=== PATIENT | male | born 1970 | race Caucasian/White ===

== ENCOUNTER → 2016-05-31 | Outpatient (CLI) | payer OTHER ==
--- NOTE | 2016-05-31 14:06 | EKG ---
[address] [address] Measurements Intervals [place] Rate: 94 P: 69 DE: 151 QRS: 13 QRSD: 98 T: 49 QT: 364 QTc: 415 Interpretive Statements SINUS RHYTHM Compared to ECG 12/02/2015 15:04:21 No significant changes Electronically Signed On 05-31-16 15:42:06 MST by Zion Case [email or web address]
[2016-05-31 14:28] LABS: BASOPHILS # (AUTO) 0.03 10*3/UL; BASOPHILS % (AUTO) 0.3 % (0-1); EOSINOPHILS % (AUTO) 1.3 % (0-8); HEMATOCRIT 45.7 % (42.0-52.0); HEMOGLOBIN 16.3 g/dL (14.0-18.0); IMM GRAN % (AUTO) 0.5 % (0-5); IMM GRAN# (AUTO) 0.05 10*3/UL; LYMPHOCYTES # (AUTO) 3.27 10*3/uL; LYMPHOCYTES % (AUTO) 34.5 % (10-50); MEAN CORPUSCULAR HEMOGLOBIN 32.9 PG (27-31); MEAN CORPUSCULAR HGB CONC 35.7 g/dL (33-37); MONOCYTES # (AUTO) 0.91 10*3/UL (0.3-0.8); MONOCYTES % (AUTO) 9.6 % (5-15); NEUTROPHILS # (AUTO) 5.11 10*3/UL; NEUTROPHILS % (AUTO) 53.8 % (50-80); RDW COEFFICIENT OF VARIATION 13.2 % (11.5-14.5); RED BLOOD COUNT 4.96 10^6/uL (4.70-6.10); WHITE BLOOD COUNT 9.49 10^3/uL (4.8-10.8)
[2016-05-31 14:33] LABS: PLATELET MORPHOLOGY COMMENT NORMAL MORPHOLOGY (NORM)
[2016-05-31 14:50] LABS: BLOOD UREA NITROGEN 22 mg/dL (7-22); CALCIUM 8.6 mg/dL (8.7-10.7); CHLORIDE 99 meq/L (98-112); CREATININE 0.8 mg/dL (0.70-1.50); EST GLOMERULAR FILTRATION > 60 (>60 ml/min/1.73m(2)); GLUCOSE 105 mg/dL (78-110); POTASSIUM 3.4 meq/L (3.8-5.2); SODIUM 136 meq/L (135-145)
[2016-05-31 14:51] LABS: ASPARTATE AMINO TRANSFERASE 26 IU/L (21-57); BILIRUBIN,TOTAL 0.6 mg/dL (0.3-1.2); TOTAL PROTEIN 6.8 g/dL (6.1-8.0)
--- NOTE | 2016-05-31 21:09 | DI ---
XR CXR 2VW PA/LAT,05/31/2016 1:51 PM: Clinical History: Chest pain Previous Exam: None at this facility. Findings: PA and lateral views of the chest are obtained, and demonstrate clear lungs. The cardiomediastinum an d bony thorax are unremarkable. Impression: Normal chest.
== END ==
LOC: MOB LAB 13:54
PROVIDERS: ATTEND Family Medicine
DX: R07.9 Chest pain, unspecified (principal); I10 Essential (primary) hypertension; F17.200 Nicotine dependence, unspecified, uncomplicated
CPT/HCPCS: 36415; 71020; 80053; 84484; 85025; 93005; 93010

== ENCOUNTER 2016-06-08 11:08 | Emergency (ER) | payer OTHER ==
[2016-06-08 11:26] VITALS: RESP 16; TEMP 97.8
--- NOTE | 2016-06-08 13:51 | DI ---
History: Trauma. Procedure: Three-view. Prior study 04/12/16. Findings: As noted on the prior study, there is bilateral symmetric buttressing of the femoral head c onsistent with femoral acetabular impingement. Limited acetabular coverage is noted bilaterally right more so than left. Pelvic ring is intact. Some osteophyte formation is noted upper aspect of the lef t SI joint. Impression: No evidence of acute process. Mild degenerative changes bilaterally along with marginal b uttressing consistent with femoral acetabular impingement condition. No progression from prior study. Osteophyte upper aspect of the left SI joint.
--- NOTE | 2016-06-08 13:58 | DI ---
History: Right shoulder pain, trauma. Prior study: 04/30/16. Findings: The patient does have an in inferiorly directed bone spur but is well medial of the acromio clavicular junction. It is probably too medial to interfere with the supraspinatus muscle. Regarding the acromioclavicular junction, in the evidence of the to prior trauma. Its articular axis is rotated about 45? from normal and there is a small heterotopic bone at the top of the a.c. junctio n. The gap between the acromion and the humeral head is small, only 6 mm. This may contribute to pins running condition or since the humeral head is slightly higher than normal, the patient may have a p re-existing rotator cuff tear of the allows the humerus to be higher than normal. No dislocation identified. No fracture identified. Impression: Somewhat high riding humerus which could indicate pre-existing rotator cuff tear Moderate degenerative changes of the acromioclavicular junction Inferiorly directed osteophyte medial to the coracoid process, probably incidental but but could inte rfere with shoulder motion
--- NOTE | 2016-06-08 15:55 | PDOC ---
Fall HPI - General Chief Complaint: Fall Stated Complaint: fell at work, pain left gluteus and right shoulder Date Seen by Provider: 06/08/16 Time Seen by Provider: 11:30 Source: POSITIVE: Patient Exam Limitations: POSITIVE: No limitations Nurse's Notes Reviewed & Considered: Yes - History of Present Illness Initial Comments: The patient is a 45-year-old male. 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 He states that he slipped and fell a couple of feet landing on his left posterior hip. He states he also landed on his outstretched right hand and has subsequently had some pain to the lateral aspect of the right shoulder. He is ambulatory to the emergency room. He states he has a"big lump"in his left buttock and he has pain when sitting on his left buttock. He has a history of having had a fracture to his right clavicle in the past which is healed with some deformity. He states he has a pre-existing history of a rotator cuff injury to the right shoulder and has been scheduled with his orthopedist for rotator cuff surgery. Have you received a tetanus shot in the past 10 years?: Yes Body Location Affected: REPORTS: Upper Extremity (R) (Right shoulder), Lower Extremity (L) (Left posterior hip) Timing: REPORTS: Abrupt Duration: 1-3 hours Severity: Moderate Context of Fall: REPORTS: Slipped Location of Fall: REPORTS: Work Fell From Height (in feet): 2 Quality: REPORTS: "Pain" Associated Symptoms: REPORTS: Recalls Injury, Recalls Coming to ER. DENIES: Dazed, Seizure, Trouble Breathing, Memory Impairment, Blow to Head, Lost Consciousness, Other Location of Injuries / Pain: REPORTS: Right, Left, Shoulder, Hip (See above and see diagram) Any Prior Injuries Related to Current Complaint?: Yes (pre-existing right rotator cuff injury and clavicular fracture) - Patient Home Medications Home Medications: Home Medications Meloxicam 1 tab PO BID #60 tab 02/03/16 Lisinopril/Hydrochlorothiazide [Lisinopril-Hctz 20-25 Mg Tab] 1 tab PO DAILY # 90 tab 02/06/16 Cholecalciferol (Vitamin D3) [Vitamin D3] 1 cap PO QD cap 04/12/16 Varenicline Tartrate [Chantix] 1 tab PO BID #60 tab 04/12/16 Gabapentin 2 cap PO TID #180 cap 05/01/16 Hydrocodone/Acetaminophen [Hydrocodon-Acetaminophen 5-325] 1 tab PO QHS #60 tab 05/24/16 Cyclobenzaprine HCl 10 mg PO TID #90 tab 05/31/16 Carisoprodol [Soma] 350 mg PO QHS #30 tab 06/05/16 - Patient Allergies Allergies/Adverse Reactions: Allergies Allergy/AdvReac Type Severity Reaction Status Date / Time amoxicillin trihydrate AdvReac Intermediate ITCHING Verified 06/08/16 11:14 [From Augmentin] potassium clavulanate AdvReac Intermediate ITCHING Verified 06/08/16 11:14 [From Augmentin] Past Medical History - heen HEENT History: Denies History Cardiovascular History: Hypertension Respiratory History: Denies History Additional Respiratory History: HX OF HOME NOC O2 USE Gastrointestinal History: Denies History Genitourinary History: Denies History Endocrine History: Denies History Additional Endocrine History: CONFIRMED WITH PT Musculoskeletal History: Denies History Prosthesis or Implant: No Additional Musculoskeletal History: TAKES FLEXERIL FOR GENERAL BODY PAINS Neurological History: Denies History Additional Neurological History: PERIPHERAL NEUROPATHY Blood Disorders: Denies History Psychiatric History: Denies History History of Sexually Transmitted Diseases: No Cancer History: Denies History In Past Year Been Physically Harmed or Verbally Threatened: No History of MDRO: No History of Other Communicable Diseases: No Tobacco Use: Former Smoker Alcohol Use: None Substance Use Type: None Previous Surgical History: Yes Type / Date of Surgery: SEE ABOVE Anesthesia Reactions: No Significant Family History: No pertinent family hx Past Medical History Reviewed: Reviewed - No Changes ROS - Limitations ROS Limitations: No Limitations Constitution: REPORTS: Denies Symptoms Cardiovascular: REPORTS: Denies Cardiac Symptoms Respiratory: REPORTS: Denies Resp Symptoms Neurological: REPORTS: Denies Neuro Symptoms Gastrointestinal: REPORTS: Denies GI Symptoms Endocrine: REPORTS: Denies Symptoms Musculoskeletal: REPORTS: Joint Pain (Right shoulder and posterior left hip), Muscle Aches, Recent Injury (See above) Genitourinary: REPORTS: Denies Symptoms Eyes: REPORTS: Denies Symptoms ENT: REPORTS: Denies Symptoms Skin: REPORTS: Denies Skin Symptoms Lympathic: REPORTS: Denies Lympathic Symptoms Immunologic: POSITIVE: Denies Symptoms Psychiatric: POSITIVE: Denies Psych Symptoms Fall Physical Exam - General Appearance General Appearance: POSITIVE: Alert, Cooperative, No Acute Distress. NEGATIVE: No Evidence of Trauma - HEENT HEENT: POSITIVE: Head Inspection Nml, Eyes Inspection Nml, Ears Inspection Nml, Nose Inspection Nml, Oral/Dental Inspect. Nml, Pharynx Inspect. Nml, PERRL, EOMI - Pupil Size Pupil Size: 4 mm: Bilateral (PERRLA) - Neck Neck: POSITIVE: Non Tender, Painless ROM, Trachea Midline, Nexus Criteria Negative - Respiratory / CVS Respiratory / CVS: POSITIVE: Chest Non Tender, No Ecchymosis, Breath Sounds Normal, No Respiratory Distress, Heart Sounds Normal, Regular Rate/Rhythm Peripheral Pulses: Radial (R): 2+, Radial (L): 2+ - Abdomen Abdomen: Soft: (All Quadrants), Normal Bowel Sounds: (All Quadrants), Denies Tenderness: (All Quadrants), No Splenomegaly: (All Quadrants), No Hepatomegaly: (All Quadrants), No Guarding: (All Quadrants), No Rebound: (All Quadrants), No Palpable Pulse: (All Quadrants), No Palpabale Mass: (All Quadrants), No Distention: (All Quadrants), No Rigidity: (All Quadrants) - Neuro / Psych Neuro / Psych: POSITIVE: Oriented X3, behavioral health specialist Normal As Tested, Motor Normal, Sensation Normal, Mood Appropriate, Affect Appropriate - Skin Skin: POSITIVE: See Diagram, Other (Large deep hematoma left buttock with some ecchymosis) - Back Back: POSITIVE: Normal Inspection, No CVA Tenderness, Non Tender, Painless ROM, No Vertebral Tenderness - Extremities Extremity Assessment: Non-Tender: (ALL), Normal ROM: (ALL), No Edema: (ALL), Normal Inspection: (ALL), No Swelling: (ALL) Joint Exam: POSITIVE: Normal Gait, Limited ROM (Range of motion right shoulder limited in abduction), Antalgic Gait (Due to left gluteal pain). NEGATIVE: Ligamentous Instability, Effusion, Click, Crepitus, Unable to Bear Weight, Joint Effusion Images - Complete Complete: 1 - Discomfort on direct palpation over area of spinatus insertion with abduction right shoulder limited due to pain 2 - Pre-existing deformity distal right clavicle 3 - Large hematoma Fall Progress - Results Reviewed by me Xrays/CTs/US Reviewed by me: Yes Discussed with Radiologist: No Radiology Findings: X-ray left hip normal; x-ray right shoulder normal except for healed old distal clavicular fracture - Patient's Progress Pain Medication Addressed: POSITIVE: Yes (Tylenol or Advil as necessary) School/Work Release Addressed: POSITIVE: Yes Re-Examine Time:: 12:50 Status: POSITIVE: Unchanged - Consult Counseled: POSITIVE: Patient, RE: Radiology Results, RE: DX, RE: Need for F/U Patient Care Time - Estimated PCT Patient Care Time (In Minutes): 35 Vital Signs - Recent Vital Signs Vital Signs: Vital Signs (Last 8 hours) Temp Pulse Resp BP Pulse Ox 06/08/16 11:16 97.8 F 120 H 16 146/127 97 - VS Reviewed Vital Signs Reviewed: Yes Discharge Clinical Impression: Contusion, Shoulder sprain Discharge Disposition: Discharged to Home Condition: Fair Patient Instructions Given at Discharge: Contusion in Adults (ED), Shoulder Sprain (ED) Additional Instructions: You have a very large, deep, contusion and hematoma to the left buttock. This will cause you some pain, especially with sitting, for some time. This may take several weeks to resolve. Please apply warm moist compresses to your left buttock. Advil or Tylenol for pain. I believe you have also exacerbated your previous rotator cuff injury. Sling or shoulder immobilizer as necessary for this. Follow-up with your orthopedist, as is already arranged. Return here anytime if condition worsens in any way. Follow Up With: ALEIDA KAUFMAN [Primary Care Provider] - (Instructions as above. Follow-up with your primary care provider and orthopedist. Return here anytime if condition worsens in any way.)
== END 2016-06-08 13:05 | disposition home or self-care (01) ==
LOC: ER 11:08
DX: S70.02XA Contusion of left hip, initial encounter (principal); S43.401A Unspecified sprain of right shoulder joint, initial encounter; W17.89XA Other fall from one level to another, initial encounter; Y92.513 Shop (commercial) as the place of occurrence of the external cause; Y99.0 Civilian activity done for income or pay
CPT/HCPCS: 73030; 73502; 99282

== ENCOUNTER → 2016-06-14 | Outpatient (CLI) | payer OTHER ==
--- NOTE | 2016-06-14 23:08 | DI ---
MRI CERVICAL SPINE SCAN, 06/14/2016 1:41 PM: Clinical History: Cervical spondylosis with radiculopathy. Previous Exam: None. Sequences: Sagittal T1and T2 weighted. Axial T2 PLUS and FE 3D DUAL. Coronal T1 scans through the upp er cervical spine in the myelogram sequence could not be performed because the patient complained of extreme pain and desired to terminate the exam. The vertebral bodies are of normal height and size. There is disc space narrowing from C3-4 through C 6-7 and all cervical disc spaces show desiccation change. The cervical cord and cerebellar tonsils ar e normal. C2-3 has a mild circumferentially bulging but not herniated disc without canal or neural fo raminal stenosis. The C3-4 disc space is normal. C4-5 has a left lateral focal disc herniation that i s displacing the left side of the cord posteriorly and is causing left neural foraminal stenosis. The re is no canal or significant right neural foraminal stenosis. C5-6 has a bulging but not herniated d isc without canal stenosis. There is bilateral neural foraminal stenosis. C6-7 also has a circumferen tially bulging but not herniated disc without canal stenosis but with bilateral neural foraminal sten osis. The disc spaces from C7-T1 through T4-5 are normal. Readin. There is a focal left lateral disc herniation at C4-5 that is producing severe left neural forami nal stenosis. There is no canal or right neural foraminal stenosis. 2. There are bulging but not herniated discs without canal or neural foraminal stenosis at C2-3, C5- 6, and C6-7. The AP diameters of the canal at C5-6 and C6-7 are at the lowest limits of normal. 3. The C3-4 disc space and the disc spaces from C7-T1 through T4-5 are normal.
== END ==
LOC: MRI 13:35
PROVIDERS: ATTEND Neurological Surgery
DX: M47.22 Other spondylosis with radiculopathy, cervical region (principal); M50.121 Cervical disc disorder at C4-C5 level with radiculopathy; M47.812 Spondylosis without myelopathy or radiculopathy, cervical region
CPT/HCPCS: 72141

== ENCOUNTER → 2016-06-19 | Outpatient (CLI) | payer OTHER ==
--- NOTE | 2016-06-19 22:23 | DI ---
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 Previous Exam: None. Technique: Sagittal and axial T2 weighted; sagittal T1 weighted and T2 STIR; and axial PD. The vertebral bodies are of normal height and size. Disc space narrowing is present at L5-S1. The L4- 5 and L5-S1 show desiccation change. The remaining disc spaces are of normal height with only mild de siccation change. The cord terminates at T12 and the conus medullaris is normal. T10-11 has a circumf erentially bulging but not herniated disc without canal or neural foraminal stenosis. The disc spaces from T11-12 through L2-3 are normal. L3-4 has a mild circumferentially bulging but not herniated dis c without canal or neural foraminal stenosis. L4-5 has a central bulging but not herniated disc witho ut canal or neural foraminal stenosis. There is a midline disc annulus tear. L5-S1 has a right latera l disc herniation that is causing right neural foraminal stenosis. There is no canal or left neural f oraminal stenosis. Readin. There is a right lateral focal disc herniation at L5-S1 that is causing right neural foraminal st enosis. There is no canal or left neural foraminal stenosis. 2. There are bulging but not herniated discs without canal or neural foraminal stenosis at T10-11, L 3-4, and L4-5. There is a midline disc annulus tear at L4-5. 3. The disc spaces from T11-12 through L2-3 are normal.
== END ==
LOC: MRI 12:31
PROVIDERS: ATTEND Neurological Surgery
DX: M47.26 Other spondylosis with radiculopathy, lumbar region (principal); M47.817 Spondylosis without myelopathy or radiculopathy, lumbosacral region; M47.814 Spondylosis without myelopathy or radiculopathy, thoracic region
CPT/HCPCS: 72148

== ENCOUNTER 2016-07-04 12:43 | Day surgery (SDC) | payer OTHER ==
[2016-07-04] MEDS ORDERED: LIDOCAINE IM ONE ×2 (12:45)
[2016-07-04] MEDS ORDERED: SODIUM BICARB IM ONE ×2 (12:45)
[2016-07-04] MEDS ORDERED: Ropivacaine 0.2% VIAL 2 MG/ML VIAL IAC ONE (12:45)
[2016-07-04] MEDS ORDERED: Iopamidol Inj 61% 50 ML VIAL INTRATHEC ONE (12:45)
[2016-07-04] MEDS ORDERED: BETAMET ACET/BETAMET NA PH 6 MG/1 ML - 5 ML IAC ONE (12:45)
[2016-07-04 14:13] VITALS: RESP 18; TEMP 98.9
--- NOTE | 2016-07-04 17:44 | GEN.OPNOTE ---
Interlaminar STARLA Procedure: Interlaminar Epidural Steriod Injection Procedure Code - Neurosurgery: 20343 : Lumbar Epidural Injection (Single), 88899 : Fluoroscopic Guidance Level: L4-5 Preoperative Diagnosis: Right L5 nerve root compression from foraminal stenosis -: Consent: Rationale for procedure, nature of procedure, possible risks and benefits were discussed with the patient. Risks including allergic reaction to medications, known effects of steroid medications including transient elevation in blood sugar with aggravation of pre-existing diabetes and remote risk of aseptic necrosis of the hip. Pain at the injection site, inadvertent dural puncture with resultant in CSF leak and headache possibly requiring further treatment. Infection or bleeding with potential risk of neurologic injury with weakness, paralysis or were all reviewed with the patient who wished to proceed. Anesthesia, sedation: No intravenous access or sedation was used. Physiologic monitoring of pulse and oxygen saturation was utilized. Procedure: Initial attempt was to place a needle via an oblique approach to do a selective L5 nerve root block. He was unable to access the foramen and therefore proceeded with an L4-5 interlaminar epidural injection. The patient was placed prone on the operating room table, prepped with Chloroprep and sterilely draped. The skin was anesthetized with 1% Buffered Xylocaine. Under fluoroscopic control a 22-gauge Touhy needle was advanced into the epidural space at the [L4-5] level. Using loss-of- resistance technique the epidural space was identified. Omnipaque was injected under real- time fluoroscopy demonstrating an epidurogram. Following this [5] ml of a mixture of Celestone (6mg/ml) and 1% lidocaine was injected epidurally. AP images of the final needle placement were obtained. The needle was removed and the patient returned to the post procedure recovery room where they were monitored for any side effects. Pain assessment: Preprocedure pain [4]/10, post procedure pain [2]/10. Discharge instructions: Patient was given a pain log to be filled out and returned. A delayed response to the steroids of 2-5 days was discussed.
== END 2016-07-04 14:09 | disposition home or self-care (01) ==
LOC: SDSC 12:43
PROVIDERS: ATTEND Neurological Surgery
DX: M48.06 Spinal stenosis, lumbar region (principal)
CPT/HCPCS: 62323; 76000; J0702; J2795; J2001